=== PATIENT | female | born 1980 | race Caucasian/White ===

== ENCOUNTER 2019-04-01 03:45 | Emergency (ER) | payer OTHER, SELFPAY ==
[2019-04-01 03:47] VITALS: BP 111/77; PULSE 75; RESP 13; TEMP 36.5; O2SAT 100; BMI 22.2
--- NOTE | 2019-04-01 03:56 | RAD_ITS ---
HISTORY: CHEST PAIN STARTING AT 0300, RADIATING TO LEFT SHOULDER EXAM: XR Chest 2 Views: COMPARISON: None FINDINGS: # of images incl. paperwork: 2 Lungs are clear. Heart is not enlarged. No acute osseous pathology perceived. Pulmonary vascularity is distinct. No effusions. RAD/Chest PA and Lateral IMPRESSION: Normal. at 0450 Reported and signed by: Azam Long MD Electronically Signed: Azam Long MD at 4:49 EST Tel , Service support ,
--- NOTE | 2019-04-01 03:56 | ED.DCSUM_ITS ---
History of Present Illness Chief Complaint: Chest Pain Informant: Patient Narrative: She stated she was resting tonight and felt pain in her left arm. Is a sharp stabbing pain. It radiated to the left shoulder and also on the left side of the chest. It lasted for about 15 minutes and went away. She received aspirin by EMS. Cardiac risk factors pulmonary embolism risk factors or dissection risk factors. She has been dealing with on and off pains like this for the last month. She has not been evaluated yet. Denies any shortness of breath. Denies any nausea or vomiting. Given aspirin by EMS. Past Medical History - Allergies and Home Meds Allergies/Adverse Reactions: Allergies No Known Allergies Allergy (Verified 04/01/19 03:56) Primary Care Physician: [facility] Doctor,Out of [NON-STAFF] - Prior records reviewed: Yes Past Medical History: None Surgical History: - - section Lives: With Family Smoking Status: Never smoker Alcohol: None Drugs: None Review of Systems General: Denies: Chills, Fever, Sweats Eyes: Denies: Visual changes - bilaterally, Diplopia ENT: Denies: Rhinorrhea, Sore throat Cardiovascular: Reports: Chest pain. Denies: Palpitations Respiratory: Denies: Dyspnea, Cough, Dyspnea on exertion Gastrointestinal: Denies: Abdominal pain, Nausea, Vomiting, Diarrhea, Melena, Hematochezia Genitourinary: Denies: Dysuria, Hematuria, Frequency Musculoskeletal: Reports: Extremity Pain. Denies: Back pain Skin: Denies: Rash, Wounds Neurological: Denies: Headache, Weakness, Numbness Physical Exam Vital Signs/Narrative: Vital Signs Temp Pulse Resp BP Pulse Ox 04/01/19 03:47 97.7 F L 75 13 111/77 100 General: Well nourished, Well developed, No Acute Distress Head: Normocephalic, Atraumatic Eyes: Perrl, EOMI ENT: Moist mucous membranes, No rhinorrhea Neck: Supple, Nontender Cardiovascular: Regular rate, Regular rhythm, No murmurs Respiratory: No distress, CTA bilaterally, Chest nontender Abdomen: Soft, Nontender, Nondistended, Normal bowel sounds Back: Nontender, Normal Inspection Extremities: Nontender, No edema Skin: Normal color, No rash Neurological: Alert, Oriented x3, Cranial nerves II-XII grossly intact, Normal Strength, Normal Sensation Psychological: Normal affect, Normal Mood Diagnostic/Tx/Re-eval - Medical Decision Making EKG shows normal sinus rhythm at a rate of 66 with no acute ischemia or arrhythmia. Lab work and chest x-ray obtained. Lab work and chest x-ray showed no significant abnormalities. Troponin is negative. Liverfunction test and lipase negative. negative. Chest x-ray normal. At this time this is very atypical for cardiac pain. I do not think he is having a PE or dissection. I do not feel she needs further evaluation in the emergency department. She will follow-up as an outpatient. Her heart score is low. ED Disposition - Plan for ED Patient: Disposition: Home or Assisted Living Diagnosis: Chest pain at rest Instructions: CHEST PAIN, NonCardiac Prescriptions: Famotidine [Pepcid] 40 mg PO DAILY #14 tab Prescription Printed Referrals: [facility] Doctor,Out of [NON-STAFF] -
--- NOTE | 2019-04-01 03:56 | EKG12_ITS ---
Test Reason : CP Blood Pressure : / mmHG Vent. Rate : 066 BPM Atrial Rate : 066 BPM P-R Int : 130 ms QRS Dur : 092 ms QT Int : 412 ms P-R-T Axes : 057 017 030 degrees QTc Int : 431 ms Normal sinus rhythm Low voltage QRS Borderline ECG Confirmed by SREEKANTH MARIE, ROLLY ([id number]), supervising editor news reel PEDRO MONTEMAYOR ([id number]) on 04/02/2019 9:50:02 AM Referred By: OBED Confirmed By:ROLLY STACK MD
[2019-04-01 03:57] VITALS: O2SAT 100
--- NOTE | 2019-04-01 04:01 | ED.RN ---
NO OLD EKG
[2019-04-01 04:09] LABS: Absolute Lymphocyte Count 1.91 X10^3/uL (0.83-4.51); Absolute Neutrophil Count 2.2 X10^3/uL (2.0-7.7); Basophil# 0.03 X10^3/uL; Basophil% 0.7 % (0-1); Eosinophil# 0.15 X10^3/uL; Eosinophils% 3.3 % (0-5); Hematocrit 38.2 % (37-47); Hemoglobin 12.5 g/dL (12.0-15.0); Lymphocyte # 1.91 X10^3/ul (4.0); Lymphocyte % 41.6 % (19-41); Mean Corp Hgb Conc 32.7 g/dL (32-36); Mean Corpuscular Hgb 30.5 pg (27.0-32.0); Mean Corpuscular Volume 93.2 fL (81-99); Monocyte# 0.34 X10^3/uL; Monocyte% 7.4 % (0-10); NRBC Flagged by Analyzer 0 % (0-5); Neutrophil # 2.16 X10^3/uL (2.7-7.7); Platelet Count 216 K/mm3 (150-450); RBC Distribution Width CV 12.2 % (11.6-14.6); RBC Distribution Width SD 41.8 fl (35.1-43.9); White Blood Count 4.6 K/mm3 (4.4-11.0)
[2019-04-01 04:26] LABS: Anion Gap 5 (5-15); BUN 16 mg/dL (7-18); BUN/Creat Ratio 21.3 RATIO (10-20); Calcium,Total 8.2 mg/dL (8.5-10.1); Chloride 107 mmol/L (98-107); Creatinine, Serum 0.75 mg/dL (0.55-1.02); EST Glomerular Filtration Rate 92 mL/min (>60); Est Glom Filt Rate - Afr Amer 111 mL/min (>60); Estimated Creatinine Clearance 80.44 ml/min; Glucose 96 mg/dL (74-106); Potassium 3.2 mmol/L (3.5-5.1); Sodium Level 141 mmol/L (136-145)
[2019-04-01 05:22] LABS: ALB/GLOB Ratio 1.1 RATIO (0.9-2.4); AST(SGOT) 19 U/L (15-37); Alanine Aminotransfer ALT/SGPT 25 U/L (13-56); Albumin, Serum 3.7 g/dL (3.2-5.0); Alkaline Phosphatase 37 U/L (45-117); Globulin 3.3 g/dL (2.2-4.2); Lipase 92 U/L (73-393)
[2019-04-01 05:40] LABS: Internal QC Validated? YES +Cl - CLEAR BKGD; Pregnancy, Serum, hCG Quali. NEGATIVE Negative
[2019-04-01 05:45] VITALS: BP 110/70; PULSE 78; RESP 17; O2SAT 98
[2019-04-01] MEDS: Famotidine 20 MG Tablet 40 MG PO (05:54)
== END 2019-04-01 05:59 | disposition home or self-care (01) ==
PROVIDERS: Emergency Provider Emergency Medicine; Family Provider Family Medicine; PCP Family Medicine
DX: R07.9 Chest pain, unspecified (principal)
CPT/HCPCS: 71046; 80053; 83690; 84484; 84703; 85025; 93005; 99285; J7030; A4216

== ENCOUNTER 2024-01-12 10:34 | Emergency (ER) | payer OTHER, SELFPAY ==
[2024-01-12 10:40] VITALS: BP 113/58; PULSE 62; RESP 16; TEMP 36.8; O2SAT 98; BMI 24.3
--- NOTE | 2024-01-12 11:15 | CT_ITS ---
STUDY: CT ABDOMEN AND PELVIS WITHOUT CONTRAST REASON FOR EXAM: Female, 43 years old. Left lower abdominal pain. Prior cholecystectomy and prior hernia repair. RADIATION DOSAGE (If Supplied By Facility): CTDIvol = ( 6.35 ) mGy, DLP = ( 307.99 ) mGycm TECHNIQUE: Transaxial images were obtained from the dome of the diaphragm to the symphysis pubis without oral contrast, and without intravenous contrast. Sagittal and coronal images were reconstructed. Individualized dose optimization techniques were used for this CT. COMPARISON: None. FINDINGS: The visualized lung bases are unremarkable. The visualized portions of the heart are within normal limits. Normal liver. There are surgical clips in the gallbladder fossa consistent with a prior cholecystectomy. Normal spleen. Normal pancreas. Normal bilateral adrenal glands. Bilateral nonobstructive intrarenal calculi. The largest calculus is in the lower pole calyx of the right kidney and measures 3.2 mm. I suspect a 2.5 mm calculus in the midportion of the left ureter. Normal visualized stomach. Normal small intestine. There are scattered colonic diverticula consistent with diverticulosis. The appendix is visualized and appears normal. Normal abdominal aorta. Normal inferior vena cava. Normal retroperitoneum. 3 mm calculus in the base of the bladder on the left side. Questionable recently passed calculus. Enlarged uterus. Normal abdominal wall. Loss of the normal lumbar lordosis. CT/Abdomen/Pelvis without Cont IMPRESSION: Nonobstructive bilateral intrarenal calculi. 2.5 mm calculus in the midportion of left ureter. There is a 3 mm calculus at the base of bladder on the left side. This may represent a recently passed left ureteral calculus. Electronically Signed: Toribio Ferrer MD at 13:34 EDT ,
--- NOTE | 2024-01-12 11:16 | ED.VIS.GI ---
HPI HPI - GI History of Present Illness Chief Complaint: Abd Pain Detail of Chief Complaint: Abdominal pain Informant: patient Narrative Narrative: Patient presents to the emergency department complaint of left lower quadrant abdominal pain that started this morning around 9 AM. Patient presents via EMS from home. She rates her pain a 10 out of 10. Patient was given fentanyl 100 mcg by squad and not having much pain relief. She does have a history of kidney stones. She denies any pain in her back. She describes trouble urinating and that she feels like she needs to urinate but not able to get much urine out. Denies fevers or chills or sweats. Patient has had prior cholecystectomy and prior hernia repair. Does not think she is . [facility] Medical History Chest pain, unspecified Family history of hypertrophic cardiomyopathy Family history of sudden cardiac Nonrheumatic mitral (valve) prolapse Home Medications ?Medication ?Instructions ?Recorded ?Last Taken ?Type cardio for life 1 sc PO DAILY 02/04/21 Unknown History hydrocodone-acetaminophen 5-325mg 1 tab PO Q4H PRN PRN Pain 2 days 01/12/24 Unknown Rx 5mg-325mg #15 TABLETS naproxen 500 mg tablet 500 mg PO BID #14 tabs 01/12/24 Unknown Rx Allergy/AdvReac Type Severity Reaction Status Date / Time No Known Allergies Allergy Verified 01/12/24 10:42 Family History Brother Myocardial infarction Mother CHF (congestive heart failure) Father CHF (congestive heart failure) Sister History of mitral valve disorder Brother Sudden cardiac , Onset Age: 37 Surgical History History of cholecystectomy History of hernia repair Social History Smoking Status: Never smoker alcohol intake: never substance use type: does not use caffeine: Yes (occasional) ROS ROS ED Review of Systems ROS Unobtainable: other Constitutional Constitutional ED: Reports lethargy; Denies chills, fever(s), sweats or weight loss Eyes Eyes: Denies blurry vision, change in vision or diplopia ENT ENT ED: Denies rhinorrhea or sore throat Cardiovascular Cardiovascular: Denies chest pain, orthopnea or racing heartbeat Respiratory/Chest Respiratory/Chest: Denies cough, dyspnea, dyspnea on exertion, orthopnea or sputum Gastrointestinal Gastrointestinal: Reports abdominal pain and nausea; Denies diarrhea or vomiting Genitourinary Genitourinary ED: Denies dysuria, hematuria or urinary frequency Musculoskeletal Musculoskeletal: Denies arthralgias, back pain, myalgias or neck pain Integumentary Denies abscess, Abrasions or rash Neurologic Neurologic: Denies headache(s) or weakness Psychiatric Psychiatric: Denies anxiety, depression or suicidal thoughts Endocrine Endocrinology: Denies polydipsia, polyphagia or polyuria Hematologic/Lymphatic Hematologic/Lymphatic: Denies easy bleeding, easy bruising or lymphadenopathy Allergic/Immunologic Allergic/Immunologic ED: Denies mouth swelling, tongue swelling or urticaria EXAM Physical Exam Const Vital Signs: 01/12/24 10:40 01/12/24 12:41 Temperature 98.2 F Temperature Source Oral Pulse Rate 62 Respiratory Rate 16 Blood Pressure 113/58 L 96/53 L Blood Pressure Mean 76 67 Pulse Ox 98 Oxygen Delivery Method Room Air Positive well nourished and well developed General Appearance ED: well developed and NAD HEENT Reports TM's clear and moist mucous membranes normocephalic and atraumatic; Negative for trauma or tenderness Tympanic Membrane ED: Yes TM's clear Eyes PERRL and EOMs intact bilaterally General Eye ED: Negative for pale conjunctiva or scleral icterus Neck no lymphadenopathy, supple and no JVD General: Negative for tenderness Chest Wall inspection of chest normal and palpation of chest normal Chest: Negative for tenderness Resp normal respiratory effort and clear to auscultation bilaterally Effort and Inspection: Negative for respiratory distress or pain with movement Auscultation: Negative for rhonchi, wheezes or diminished lung sounds Cardio regular rate, regular rhythm, S1 normal heart sound, S2 normal heart sound and no murmurs Peripheral Pulses: pulses 2+ throughout GI normal to inspection, nondistended, normoactive bowel sounds, soft to palpation, non-distended and no masses GI Narrative: Tenderness palpation over left lower quadrant with some guarding. There is no rebound, rigidity, or peritoneal signs. No mass palpated. Back/Spine no CVA tenderness and no thoracic nor lumbar tenderness Extremity normal to inspection General Extremety ED: Negative for edema General Extremity: Negative for edema Neuro oriented x3, CN's II-XII intact bilaterally, no sensory deficits noted and gait normal Sensorium / Orientation: awake, alert, oriented to person, oriented to place and oriented to time Motor Exam: strength 5/5 throughout and strength abnormal Psych mental status grossly normal Skin no rashes or lesions noted and no wounds MDM MDM MDM Narrative Medical decision making narrative: Patient with left lower abdomen pain that started suddenly around 9 AM. History of kidney stones. In the differential would be kidney stone versus diverticulitis versus UTI or other acute intra-abdominal process. IV line established. She was medicated with Toradol and Dilaudid and she had good pain relief with that and he currently is pain-free. CBC with differential white count of 10.1 with hemoglobin 12.2 and platelet count of 248. Chemistries unremarkable. hCG was negative. Urinalysis showed 50-100 RBCs and 10-25 WBCs with no bacteria. CT scan of the abdomen pelvis without contrast obtained showed a 2 mm calculus at the left mid ureter. Patient will be discharged to home. She will be given urine strainers and a prescription for [place]. She will be referred to urology for follow-up. She is advised to return if worsening pain, fever, vomiting, or condition should worsen anyway. Lab Data Attestation: I reviewed the patient's lab results. Labs: Laboratory Results - last 24 hr 01/12/24 01/12/24 11:02 11:53 WBC 10.1 RBC 3.97 L Hgb 12.2 Hct 37.3 MCV 94.0 MCH 30.7 MCHC 32.7 RDW Std Deviation 43.1 RDW Coeff of Babatunde 12.4 Plt Count 248 MPV 9.8 Immature Gran % (Auto) 0.600 Neut % (Auto) 73.9 H Lymph % (Auto) 19.7 [place] % (Auto) 4.8 Eos % (Auto) 0.7 Baso % (Auto) 0.3 Absolute Neuts (auto) 7.5 Absolute Lymphs (auto) 1.98 Nucleated RBC % 0 Sodium 139 Potassium 3.4 L Chloride 107 Carbon Dioxide 26.0 Anion Gap 6 BUN 10 Creatinine 0.90 Estim Creat Clear Calc 68.95 Est GFR (MDRD) Af Amer 87 Est GFR (MDRD) Non-Af 72 BUN/Creatinine Ratio 11.1 Glucose 142 H Calcium 8.6 Serum , Qual NEGATIVE Urine Color Red Urine Clarity Turbid Urine pH 5.0 Ur Specific [place] 1.025 Urine Protein 500 H Urine Glucose (UA) Normal Urine Ketones 5 H Urine Occult Blood 250 H Urine Nitrite Negative Urine Bilirubin Negative Urine Urobilinogen Normal Ur Leukocyte Esterase 100 H Urine RBC 50-100 SEEN Urine WBC 10-25 SEEN Ur Squamous Epith Cells 0-5 SEEN Urine Bacteria 0 SEEN Urine Mucus 0 SEEN Discharge Plan Triage Chief Complaint: Abd Pain ED Provider: Nasrin Scott Dx/Rx/DC Orders Clinical Impression: Urolithiasis Instructions: ED Kidney Stone with Pain Prescriptions: New hydrocodone-acetaminophen 5-325 mg tablet 1 tab PO Q4H PRN PRN (Reason: Pain) 2 Days Qty: 15 0RF naproxen 500 mg tablet 500 mg PO BID Qty: 14 0RF No Action cardio for life 1 sc PO DAILY Primary Care Provider: Cristopher Webb Referrals: Anastacio Toscano MD [Med Staff - Active Staff] - 3-5 Days Cristopher Webb DO [Primary Care Provider] - Print Language: Sami Disposition Disposition: Home, Self Care
[2024-01-12] MEDS: Ketorolac 30 MG/ML Syringe IV (11:20)
[2024-01-12] MEDS: HYDROmorphone 1 MG/ML Syringe IV (11:20)
[2024-01-12] MEDS: Ondansetron 4 MG/2 ML Vial IV (11:20)
[2024-01-12 11:24] LABS: Absolute Lymphocyte Count 1.98 X10^3/uL (0.83-4.51); Absolute Neutrophil Count 7.5 X10^3/uL (2.0-7.7); Basophil# 0.03 X10^3/uL; Basophil% 0.3 % (0-1); Eosinophil# 0.07 X10^3/uL; Eosinophils% 0.7 % (0-5); Hematocrit 37.3 % (37-47); Hemoglobin 12.2 g/dL (12.0-15.0); Lymphocyte # 1.98 X10^3/ul (0.83-4.51); Lymphocyte % 19.7 % (19-41); Mean Corp Hgb Conc 32.7 g/dL (32-36); Mean Corpuscular Hgb 30.7 pg (27.0-32.0); Mean Platelet Vol. 9.8 fl (6.2-12.0); Monocyte# 0.48 X10^3/uL; Monocyte% 4.8 % (0-10); NRBC Flagged by Analyzer 0 % (0-5); Neutrophil # 7.45 X10^3/uL (2.7-7.7); Neutrophil % 73.9 % (47-70); Platelet Count 248 K/mm3 (150-450); RBC Distribution Width CV 12.4 % (11.6-14.6); RBC Distribution Width SD 43.1 fl (35.1-43.9); Red Blood Count 3.97 M/mm3 (4.2-5.4); White Blood Count 10.1 K/mm3 (4.4-11.0)
[2024-01-12 11:44] LABS: Anion Gap 6 (5-15); BUN 10 mg/dL (7-18); BUN/Creat Ratio 11.1 RATIO (10-20); Calcium,Total 8.6 mg/dL (8.5-10.1); Chloride 107 mmol/L (98-107); EST Glomerular Filtration Rate 72 mL/min (>60); Est Glom Filt Rate - Afr Amer 87 mL/min (>60); Estimated Creatinine Clearance 68.95 ml/min; Glucose 142 mg/dL (74-106); Potassium 3.4 mmol/L (3.5-5.1); Sodium Level 139 mmol/L (136-145)
[2024-01-12 11:46] LABS: Internal QC Validated? YES +Cl - CLEAR BKGD; Pregnancy, Serum, hCG Quali. NEGATIVE Negative
[2024-01-12 11:56] LABS: Bacteria 0 SEEN /hpf (None Seen); Mucous, Urine 0 SEEN /hpf (<or=2+)
[2024-01-12 11:59] LABS: Color, Urine Red (Yellow); Glucose, Dipstick Normal (Normal); Ketone-Dipstick 5 mg/dl (Negative); Leukocyte Esterase-Dipstick 100 /ul (Negative); Nitrite-Dipstick Negative (Negative); Occult Blood-Urine 250 /ul (Negative); Protein-Dipstick 500 mg/dl (Negative); Specific Gravity, Urine 1.025 (1.002-1.030); Urine Bilirubin Dipstick Negative (Negative); Urine Clarity Turbid (Clear); Urine Urobilinogen Normal (Normal)
[2024-01-12 12:05] LABS: Red Blood Cells-Urine 50-100 SEEN /hpf (0-5); White Blood Cells 10-25 SEEN /hpf (0-5)
[2024-01-12 12:06] LABS: Squamous Epithelial Cells - UA 0-5 SEEN /hpf (5-10)
[2024-01-12 12:41] VITALS: BP 96/53
[2024-01-12 13:47] VITALS: BP 101/59; PULSE 87; RESP 18; TEMP 37.2; O2SAT 100
== END 2024-01-12 13:47 | disposition home or self-care (01) ==
PROVIDERS: Emergency Provider Emergency Medicine; PCP Family Medicine; Visit Provider Emergency Medicine
DX: N20.1 Calculus of ureter (principal); Z87.442 Personal history of urinary calculi; Z87.19 Personal history of other diseases of the digestive system; Z90.49 Acquired absence of other specified parts of digestive tract; Z98.890 Other specified postprocedural states
CPT/HCPCS: 74176; 80048; 81001; 84703; 85025; 96374; 96375; 99283; A4216; J2405